=== PATIENT | male | born 1960 | race Caucasian/White ===

== ENCOUNTER → 2021-05-23 08:14 | Outpatient (BNVA) | payer OTHER, SELFPAY | PROVIDERS: PCP Family Medicine; Visit Provider Nurse Practitioner Family | DX: Z13.89 Encounter for screening for other disorder (principal) ==

== ENCOUNTER 2023-09-13 09:14 | Outpatient (AMB) | payer OTHER, SELFPAY ==
--- NOTE | 2023-09-13 09:29 | A.OFFVIS_ITS ---
Vital Signs 09/13/23 09:33 Height 5 ft 11 in Weight 175 lb BMI 24.4 BP 114/78 Blood Pressure Location Rt brachial Position Sitting Pulse 64 Pulse Source Pulse Oximeter Pulse Oximetry (%) 97 Oxygen Delivery Method Room Air Intake Visit Reasons: f/u routine per [facility]-LVM Intake Note: Patient presents for routine follow up.Patient still c/o foot pain which is still the same Allergies No Known Allergies Allergy (Verified 09/13/23 09:34) Medication List - Last Reconciled 09/13/23 by LISANDRA Toney furosemide 10 mg PO DAILY magnesium oxide 400 mg PO BEDTIME 30 days nortriptyline 10 - 20 mg (1 - 2 x 10 mg) PO BEDTIME 30 days HPI Comments Details: 62-yr-old male presents for f/u visit for BLE polyneuropathy, Pt denies any significant interval medical changes. He states he has not seen hematology in some time. States last labs were done 2-3 months ago by PCP. He tried Nortriptyline was ineffective and not tolerated. He then reached out to our office, and I advised him to try OTC Nervive nerve relief supplement, which did not help either. Pt states he talked to a pain management office, but does not think that is a good fit for him- so did not make an appt. He continues to have BLE foot pain. The pain can be severe, it can make it difficult for him to think. The pain does resolve when he is sitting, but he is still working in a very active, physical job. He has BLE numbness in the feet, decreased sensation in the shins. He denies weakness. He has been noticing some nocturnal Right lateral calf cramps, which last a few minutes but are very strong. Did not try Magnesium yet. [facility] Medical History (Updated 09/13/23 @ 11:09 by LISANDRA Toney) Low back pain Elevated ferritin Family History Father No problems noted. Mother No problems noted. Social History Household Members: Spouse Alcohol intake: current Alcohol intake frequency: does not drink Patient Tobacco Use Status: Former Tobacco user Current occupational status: employed Current occupation: [employer] Review of Systems Const All systems reviewed & are unremarkable except as noted in HPI and below Physical Exam Vital Signs: Last Vital Signs Pulse 64 09/13/23 09:33 BP 114/78 09/13/23 09:33 Pulse Ox 97 09/13/23 09:33 Oxygen Delivery Method Room Air 09/13/23 09:33 BMI result Body Mass Index 24.4 Const General: cooperative and no acute distress Orientation/consciousness: patient oriented x3 HEENT Head: Yes normocephalic Resp Effort & Inspection: normal respiratory effort and able to speak in complete sentences Neuro General: patient oriented x3, gait normal and CN's II-XI intact bilaterally Cognition (Neuro): normal cognition Motor exam (neuro): 5/5 motor strength present throughout Deep tendon reflexes (DTR's): Right patellar reflex intensity grade: 2+ and Left patellar reflex intensity grade: 2+ Psych Appearance: grossly normal Mental Status: mental status grossly normal Speech and movement: Normal speech and movement present Affect: normal affect Attitude: cooperative Thought process: Normal thought process present Thought content: Normal thought content present Insight: Good insight present (Psych) Judgement: Good judgement present (Psych) Assessment & Plan Assessment & Plan (1) Polyneuropathy: Comment: 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 Code(s): G62.9 - Polyneuropathy, unspecified Category: Medical (2) Nocturnal leg cramps: Code(s): G47.62 - Sleep related leg cramps Category: Medical (3) Hemochromatosis: Code(s): E83.119 - Hemochromatosis, unspecified Category: Medical Plan Trial Tramadol 50mg qid prn BLE neuropathic pain. Reviewed risks/benefits of use. If effective, we would need to complete a pain management contract w/ pt. Trial Mag Ox 400mg qhs prn leg cramps. Advised to take small amounts of fluid after bed. Add BLE stretches qhs. Previous med trials- Horizant- helped some but cauused fatigue. Pregabalin- helped some but caused fatigue. Will request recent PCP notes and labs. Upon review, consider additional labs and referral back to hematology. Medications: New tramadol 50 mg PO QID 7 days PRN 28 tabs 0RF pain Discontinued nortriptyline Discontinued Reason: Doctor's Order 10 - 20 mg (1 - 2 x 10 mg) PO BEDTIME 30 days 60 caps 3RF Coding Level of Care Code Est Pt Level 4 (89383) Diagnoses Polyneuropathy G62.9 Nocturnal leg cramps G47.62 Hemochromatosis E83.119
[2023-09-13 09:33] VITALS: BP 114/78; PULSE 64; O2SAT 97; BMI 24.4
== END 2023-09-13 10:38 | disposition home or self-care (01) ==
PROVIDERS: PCP Family Medicine; Visit Provider Nurse Practitioner Family
DX: G62.9 Polyneuropathy, unspecified (principal); G47.62 Sleep related leg cramps; E83.119 Hemochromatosis, unspecified
CPT/HCPCS: 99214

== ENCOUNTER → 2023-09-13 09:14 | Outpatient (BNVA) | payer OTHER, SELFPAY | PROVIDERS: PCP Family Medicine; Visit Provider Nurse Practitioner Family ==

== ENCOUNTER 2024-06-29 14:03 | Outpatient (AMB) | payer OTHER, SELFPAY ==
--- NOTE | 2024-06-29 14:06 | A.OFFVIS_ITS ---
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 He states he has not seen hematology in some time. We requested his PCP notes after last visit, however we have not received these yet- today it appears there was a typo in the request therefore [facility] did not believe they had any records for patient. Patient reports his BLE foot pain is better since starting Tramadol. He states he can now do more daily activities, which he had been unable to do before, as he often needed to rest and elevate his feet when he was not working. H started Tramadol 50mg, initially once to twice a day, however it would take a few hours to kick in, so he is taking it scheduled t.i.d.. He is not noticing any side effects. However, he is open to alternate treatment options. He notes previously he tried nerve tried nerve relief for maybe a a couple of weeks to a month, but did not see effect. He denies lower extremity weakness. [facility] Medical History (Updated 09/13/23 @ 11:09 by LISANDRA Toney) Low back pain Elevated ferritin Family History Father No problems noted. Mother No problems noted. Social History Household Members: Spouse Alcohol intake: current Alcohol intake frequency: does not drink Patient Tobacco Use Status: Former Tobacco user Current occupational status: employed Current occupation: [employer] Physical Exam Vital Signs: Last Vital Signs Pulse 76 06/29/24 14:08 BP 118/68 06/29/24 14:08 Pulse Ox 96 06/29/24 14:08 Oxygen Delivery Method Room Air 06/29/24 14:08 BMI result Body Mass Index 24.1 Const General: cooperative and no acute distress Orientation/consciousness: patient oriented x3 HEENT Head: Yes normocephalic Resp Effort & Inspection: normal respiratory effort and able to speak in complete sentences Neuro General: patient oriented x3, gait normal and CN's II-XI intact bilaterally Cognition (Neuro): normal cognition Motor exam (neuro): 5/5 motor strength present throughout Psych Appearance: grossly normal Mental Status: mental status grossly normal Speech and movement: Normal speech and movement present Affect: normal affect Attitude: cooperative Thought process: Normal thought process present Thought content: Normal thought content present Insight: Good insight present (Psych) Judgement: Good judgement present (Psych) Assessment & Plan Assessment & Plan (1) Polyneuropathy: Comment: 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 Code(s): G62.9 - Polyneuropathy, unspecified Category: Medical (2) Nocturnal leg cramps: Code(s): G47.62 - Sleep related leg cramps Category: Medical (3) Hemochromatosis: Code(s): E83.119 - Hemochromatosis, unspecified Category: Medical Plan Continue Tramadol 50mg 3 times a day. BLE neuropathic pain. Reviewed risks/benefits of use. If effective, we would need to complete a pain management contract w/ pt. May trial OTC nervive nerve relief 1 cap daily, advised it typically takes 8 weeks to see full effect. Once he is taken Nervive x's 8 weeks, he can try to slowly reduce tramadol by half tab per day every few days, to assess effectiveness. Mag Ox 400mg qhs prn leg cramps. BLE stretches qhs. Previous med trials- Horizant- helped some but caused fatigue. Pregabalin- helped some but caused fatigue. Nortriptyline-ineffective and not tolerated. Will again request recent PCP notes and labs. Upon review, consider additional labs and referral back to hematology. Medications: Refilled tramadol 50 mg PO TID 30 days 90 tabs 3RF pain Coding Level of Care Code Est Pt Level 4 (01589) Diagnoses Polyneuropathy G62.9 Nocturnal leg cramps G47.62 Hemochromatosis E83.119
[2024-06-29 14:08] VITALS: BP 118/68; PULSE 76; O2SAT 96; BMI 24.1
== END 2024-06-29 14:46 | disposition home or self-care (01) ==
LOC: HO.HSMS 14:04
PROVIDERS: PCP Family Medicine; Visit Provider Nurse Practitioner Family
DX: G62.9 Polyneuropathy, unspecified (principal); G47.62 Sleep related leg cramps; E83.119 Hemochromatosis, unspecified
CPT/HCPCS: 99214

== ENCOUNTER → 2024-06-29 14:03 | Outpatient (BNVA) | payer OTHER, SELFPAY | PROVIDERS: PCP Family Medicine; Visit Provider Nurse Practitioner Family ==

== ENCOUNTER 2024-12-31 08:12 | Outpatient (AMB) | payer OTHER, SELFPAY ==
[2024-12-31 08:13] VITALS: BP 120/80; PULSE 75; O2SAT 97; BMI 23.1
--- NOTE | 2024-12-31 08:13 | A.OFFVIS_ITS ---
Vital Signs 12/31/24 08:13 Height 5 ft 11 in Weight 166 lb BMI 23.1 BP 120/80 Blood Pressure Location Rt brachial Position Sitting Pulse 75 Pulse Source Pulse Oximeter Pulse Oximetry (%) 97 Oxygen Delivery Method Room Air Intake Visit Reasons: 6 mo follow up -Confirmed Supervisor [employer] Required: No Accompanied by: Self / Same As Patient Allergies No Known Allergies Allergy (Verified 06/29/24 14:07) Medication List - Last Reconciled 12/31/24 by LISANDRA Toney furosemide 10 mg PO DAILY rosuvastatin PO tramadol 50 mg PO TID 30 days HPI Comments Details: 64-yr-old male presents for f/u visit for painful BLE polyneuropathy, low back pain. Interval medical history: He was diagnosed with mild AAA and started on a low-dose statin per [facility] vascular. He reports a remote history of tobacco use, but he no longer smokes. Interval lipid panel was WNL. June 2024, CBC, CMP, iron profile, Ferritin 361- WNL He has not had interval follow-up with Hematology. He also reports left 3rd finger numbness and occasional pain x's 4 months without preceding injury. Denies left hand weakness. He uses both hands for work. His neck is tight and sore at times. He has been trying simple stretches without effect. Patient reports his BLE foot neuropathic pain and low back pain is better since starting Tramadol. He states he can now do more daily activities without the pain causing him to not be able to focus or think. He denies lower extremity weakness. He states the Tramadol works better when taken 1st thing in the am. Overall he takes 2-3 tabs per day. He is not noticing any side effects. However, he is use experiencing difficulty refilling his terminal refills. His pharmacy is now only filling of 7 day supply. When we called to [facility], they stated that this was per his insurance, however prior to his last 2 refills, they were filling a 30 day supply. Patient has no evidence of tramadol misuse. He has a signed pain medication contract with us. [facility] Medical History (Updated 01/15/25 @ 23:03 by LISANDRA Toney) Low back pain Elevated ferritin Family History Father No problems noted. Mother No problems noted. Social History Household Members: Spouse Alcohol intake: current Alcohol intake frequency: does not drink Patient Tobacco Use Status: Former Tobacco user Current occupational status: employed Current occupation: [employer] Physical Exam Vital Signs: Last Vital Signs Pulse 75 12/31/24 08:13 BP 120/80 12/31/24 08:13 Pulse Ox 97 12/31/24 08:13 Oxygen Delivery Method Room Air 12/31/24 08:13 BMI result Body Mass Index 23.1 Const General: cooperative and no acute distress Orientation/consciousness: patient oriented x3 HEENT Head: Yes normocephalic Resp Effort & Inspection: normal respiratory effort and able to speak in complete sentences Neuro Other: Limited cervical range of motion Bilateral Spurling test elicits an running into left upper trap region. Negative BUE medial wrist and antecubital Tinel, Phalen, medial compression test over region. However, left Phalen BUE distal sensation intact BUE hand grasp MS: 5/ General: patient oriented x3, gait normal and CN's II-XI intact bilaterally Cognition (Neuro): normal cognition Motor exam (neuro): 5/5 motor strength present throughout Psych Appearance: grossly normal Mental Status: mental status grossly normal Speech and movement: Normal speech and movement present Affect: normal affect Attitude: cooperative Thought process: Normal thought process present Thought content: Normal thought content present Insight: Good insight present (Psych) Judgement: Good judgement present (Psych) Assessment & Plan Assessment & Plan (1) Polyneuropathy: Comment: 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 Code(s): G62.9 - Polyneuropathy, unspecified Category: Medical (2) Nocturnal leg cramps: Code(s): G47.62 - Sleep related leg cramps Category: Medical (3) Hemochromatosis: Code(s): E83.119 - Hemochromatosis, unspecified Category: Medical Qualifiers: Hemochromatosis type: unspecified Qualified Code(s): E83.119 - Hemochromatosis, unspecified Plan For left finger symptoms, discuss ordering additional testing or referral to PT/OT, the patient was like to wait at this time. Reviewed interval labs were patient, advised him we can refer him back to hematology if his ferritin level increases again. Continue Tramadol 50mg 3 times a day as neede for BLE neuropathic pain. * Pain management agreement form has previously been signed by patient OTC nervive nerve relief 1 cap daily Mag Ox 400mg qhs prn leg cramps. BLE stretches qhs. Previous med trials- Horizant- helped some but caused fatigue. Pregabalin- helped some but caused fatigue. Nortriptyline-ineffective and not tolerated. Pt to follow-up in 6 months or sooner prn. Coding Level of Care Code Est Pt Level 4 (53903) Diagnoses Polyneuropathy G62.9 Nocturnal leg cramps G47.62 Hemochromatosis, unspecified hemochromatosis type E83.119 Hemochromatosis type: unspecified
== END 2024-12-31 09:15 | disposition home or self-care (01) ==
LOC: HO.HSMS 08:13
PROVIDERS: PCP Family Medicine; Visit Provider Nurse Practitioner Family
DX: G62.9 Polyneuropathy, unspecified (principal); G47.62 Sleep related leg cramps; E83.119 Hemochromatosis, unspecified
CPT/HCPCS: 99214